=== PATIENT | female | born 1965 | race African-American/Black ===

== ENCOUNTER 2020-10-21 16:31 | Emergency (ER) | payer MEDICAID ==
[~2020-10-21] VITALS: Ht 170.2 cm; Wt 68.0 kg
[2020-10-21] MEDS ORDERED: KETOROLAC 60MG/2ML VIAL IM STA (17:36)
[2020-10-21] MEDS ORDERED: IBUP-2029 PO (18:52)
[2020-10-21 19:16] VITALS: BP 144/78
== END 2020-10-21 19:17 | disposition home or self-care (01) ==
LOC: ER 16:31
DX: S90.31XA Contusion of right foot, initial encounter (principal); I10 Essential (primary) hypertension; W22.8XXA Striking against or struck by other objects, initial encounter; Y93.01 Activity, walking, marching and hiking; Y92.89 Other specified places as the place of occurrence of the external cause; Y99.8 Other external cause status
CPT/HCPCS: 73610; 73630; 96372; 99284; J1885; Z7610